=== PATIENT | male | born 1955 | race Caucasian/White ===

== ENCOUNTER 2020-12-19 10:55 | Emergency (ER) | payer MEDICARE ==
[~2020-12-19] VITALS: Ht 170.2 cm; Wt 133.0 kg
--- NOTE | 2020-12-19 11:34 | NUR ---
IN ROOM TO EDUCATE PT ON THE NEED FOR A URINE SAMPLE. PT STATES "NO, THAT AIN'T GOING TO HAPPEN" PT EDUCATED ON THE NEED. PT STATES "I JUST WENT 2 HOURS AGO" PT GIVEN BEDSIDE URINAL AND HE THIS TIME SHOUTS AT THIS RN "YOU ARE NOT LISTENING, THAT AIN'T GOING TO HAPPEN." MADE AWARE.
--- NOTE | 2020-12-19 11:50 | NUR ---
X RAY AT BEDSIDE NOW
[2020-12-19 11:55] LABS: BASOPHILS % (AUTO) 1 % (0-1); EOSINOPHILS % (AUTO) 1 % (1-7); LYMPHOCYTES % (AUTO) 10 % (22-44); MEAN CORPUSCULAR HEMOGLOBIN 30.9 pg (27.5-34.5); MEAN CORPUSCULAR HGB CONC 33.1 g/dL (33.2-36.2); MEAN PLATELET VOLUME 7.6 fL (7.4-10.4); MONOCYTES % (AUTO) 8 % (2-9); NEUTROPHILS % (AUTO) 80 % (42-75); PLATELET COUNT 295 x10^3/uL (130-400); RED BLOOD COUNT 5.52 x10^6/uL (4.38-5.82); RED CELL DISTRIBUTION WIDTH 15.1 % (9.4-14.8)
[2020-12-19] MEDS ORDERED: PLEASE ENTER ALLERGIES MC SCH (12:00)
[2020-12-19 12:06] LABS: ALBUMIN 2.7 g/dL (3.4-5.0); ANION GAP 7 mmol/L (5-15); CHLORIDE 103 mmol/L (98-107)
[2020-12-19] MEDS ORDERED: ASPIRIN 81 MG TABLET CHEW ONE (12:09)
[2020-12-19 12:12] LABS: ALANINE AMINOTRANSFERASE 34 U/L (12-78); ALKALINE PHOSPHATASE 104 U/L (45-117); BILIRUBIN,TOTAL 0.6 mg/dL (0.2-1.0); CREATININE 1.24 mg/dL (0.7-1.3); TOTAL PROTEIN 8.5 g/dL (6.4-8.2); TROPONIN I < 0.015 ng/mL (0.000-0.045)
[2020-12-19] MEDS ORDERED: ASPIRIN 81 MG TABLET CHEW PO ONE (12:30)
--- NOTE | 2020-12-19 12:59 | NUR ---
IN ROOM TO DISCUSS DISCHARGE PLAN WITH PT. 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 PT STATES TO THIS RN IF YOU CAN GET ME IN A WHEELCHAIR AND GET ME TO A BATHROOM I WILL PROVIDE A CLEAN CATCH. TECH AT BEDSIDE TO ATTEMPT TO GET PT IN WHEELCHAIR. TECH UNSUCCESSFUL. PT AGREEABLE TO USE BEDSIDE URINAL.
[2020-12-19 13:00] VITALS: BP 132/68
[2020-12-19 13:45] LABS: MICROSCOPIC INDICATED
[2020-12-19] MEDS ORDERED: HYDROcodone/APAP 5/325 TABLET PO ONE (14:30)
[2020-12-19] MEDS ORDERED: HYDROcodone/APAP 5/325 TABLET ONE (14:36)
--- NOTE | 2020-12-19 14:51 | NUR ---
PT AT THIS TIME HAS TAKEN OFF ALL MONITORING EQUIPMENT.
--- NOTE | 2020-12-19 14:51 | NUR ---
RECORDS REQUESTED FROM [facility]. PT MEDICATED PER ORDER.
--- NOTE | 2020-12-19 16:30 | NUR ---
PT BACK FROM CT. RESTING COMFORTABLY. BED POSITION CHANGED AT PT REQUEST. PT UPDATED ON POC AT THIS TIME. NO QUESTIONS ASKED.
--- NOTE | 2020-12-19 18:20 | NUR ---
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 Service recovery attempted. Advised pt that he has been medically cleared by ERP and is safe for discharge home. [facility] transport back to pt's home in [facility] arranged for pt. Pt provided pants and socks to wear home. All pt belongings are in a bag pt brought from home. Pt provided with ice pack per request. Pt reports he does not want to go home. Pt advised again that he has been medically cleared for discharge by ERP. [facility] arrived to take pt home. Pt provided SBA into [employer] wheelchair. Pt verbalizes verbal agreement to be transported home by [facility]. Pt verbalizes that "My friend is always home to let me in, I just have to call him when I get out of this building away from all this crap." Pt provided dc paperwork. Pt declines discharge teaching. Pt provided discharge paperwork and rx. Pt taken with all of his belongings out of unit by [facility].
== END 2020-12-19 18:30 | disposition home or self-care (01) ==
LOC: ED 11:31
DX: R07.89 Other chest pain (principal); N20.1 Calculus of ureter; N39.0 Urinary tract infection, site not specified; H92.02 Otalgia, left ear; M79.602 Pain in left arm; E11.9 Type 2 diabetes mellitus without complications; R11.0 Nausea
CPT/HCPCS: 36415; 71045; 74176; 80053; 81001; 84484; 85025; 87086; 93005; 99285